=== PATIENT | male | born 1985 | race Caucasian/White ===

== ENCOUNTER 2017-07-18 01:50 | Emergency (ER) | payer SELFPAY ==
[~2017-07-18] VITALS: Ht 185.4 cm; Wt 137.6 kg
[~2017-07-18 01:50] MED LIST: ACTOPLUS MET1 TABLE1 PO; BACTRIM,SEPT1 TABLET; CEPHALEXIN500 MG; GLYBURIDE2.5 MG PO; HYDROCODON-ACE1 EACH; IBUPROFEN600 MG; LISINOPRIL-HCT1 EAC3 PO; PIOGLITAZONE-M1 EAC1 PO; SIMVASTATIN10 MG PO; ZESTORETIC,P1 TABLE1 PO
[2017-07-18] MEDS ORDERED: PEPCID20 MG PO (05:35)
[2017-07-18] MEDS ORDERED: BENADRYL50 MG PO (05:35)
[2017-07-18] MEDS ORDERED: PREDNISONE20 MG PO (05:35)
[2017-07-18 05:43] VITALS: BP 121/77
== END 2017-07-18 05:48 | disposition home or self-care (01) ==
LOC: EME 01:50
DX: T78.49XA Other allergy, initial encounter (principal); X58.XXXA Exposure to other specified factors, initial encounter; R21 Rash and other nonspecific skin eruption; I10 Essential (primary) hypertension; E11.9 Type 2 diabetes mellitus without complications; Z79.84 Long term (current) use of oral hypoglycemic drugs
CPT/HCPCS: 99281; 99284; J7512